=== PATIENT | female | born 1995 | race Caucasian/White ===

== ENCOUNTER 2022-03-04 14:54 | Inpatient (IN) | payer OTHER ==
[~2022-03-04] VITALS: Ht 160 cm; Wt 78.3 kg
[2022-03-04] VITALS (13 sets, daily range): BP systolic 123–141; BP diastolic 79–97
[2022-03-04] MEDS ORDERED: PRENTAB9 PO (15:11)
[2022-03-04] MEDS ORDERED: HOME MED LIST COMPLETE! XX SCH (15:25)
[2022-03-04] MEDS ORDERED: LIDOCAINE 1% MDV 20ML VIAL INFIL PRN (16:05)
[2022-03-04] MEDS ORDERED: miSOPROStol 50MCG 1/2 TABLET PO ONE (16:05)
[2022-03-04] MEDS ORDERED: OXYTOCIN DRIP 30 UNITS in IV 1 EA IV PRN (16:05)
[2022-03-04] MEDS ORDERED: TRANEXAMIC ACID INJection 1,000 MG in NS 100 ML IV PRN (16:05)
[2022-03-04 16:52] LABS: GC DNA AMPLIFICATION NEGATIVE (NEGATIVE)
[2022-03-04 17:19] LABS: HEMATOCRIT 27.1 % (36.0-47.0); HEMOGLOBIN 9.1 g/dl (12.0-15.5); MEAN CORPUSCULAR HEMOGLOBIN 28.2 pg (27.0-33.0); MEAN CORPUSCULAR HGB CONC 33.6 g/dl (32.0-36.5); MEAN CORPUSCULAR VOLUME 83.9 fl (80.0-96.0); PLATELET COUNT, AUTOMATED 316 10^3/uL (150-450); RED BLOOD COUNT 3.23 10^6/uL (4.00-5.40); WHITE BLOOD COUNT 11.1 10^3/uL (4.0-10.0)
[2022-03-04] MEDS ORDERED: PROMETHAZINE 25MG/ML 1ML VIAL IV ONE (19:25)
[2022-03-04] MEDS ORDERED: OXYTOCIN DRIP 30 UNITS in IV 1 EA IV SCH (19:25)
[2022-03-04] MEDS ORDERED: BUTORPHANOL 2 MG/ML INJ (J0595) IV ONE (19:25)
[2022-03-04] MEDS: LR 1,000 ML IV SCH ×2 (19:46→23:04)
[2022-03-05] VITALS (35 sets, daily range): BP systolic 112–151; BP diastolic 70–102
[2022-03-05] MEDS ORDERED: FENTANYL 2MCG/ML ROPIVACAINE 0.2% IN 0.9% NACL 100ML IVBAG As Ordered ONE (01:46)
[2022-03-05] MEDS ORDERED: NALOXONE INJ 0.4MG/1ML VIAL (J2310 PER 1MG) IV PRN ×3 (02:25→12:15)
[2022-03-05] MEDS ORDERED: EPIDURAL/PCA KEYS XX PRN (02:25)
[2022-03-05] MEDS ORDERED: FENTANYL/ROPIVACAINE/NACL BAG 100 ML EPIDURAL SCH (02:25)
[2022-03-05] MEDS ORDERED: ONDANSETRON 4MG/2ML VIAL IV PRN ×4 (02:25→12:15)
[2022-03-05] MEDS ORDERED: diphenhydrAMINE 50MG/ML VIAL (J1200) IV PRN ×2 (02:25→12:15)
[2022-03-05] MEDS ORDERED: LR 500 ML IV PRN (02:25)
[2022-03-05] MEDS ORDERED: ePHEDrine SULFATE 25 MG/5 ML(5MG/ML) SYRINGE IVP PRN (02:25)
[2022-03-05] MEDS: LR 1,000 ML IV SCH ×3 (06:28→20:15)
[2022-03-05] MEDS ORDERED: OXYTOCIN INJ 10 UNITS/ML VIAL (J2590) IM PRN (09:10)
[2022-03-05] MEDS ORDERED: CARBOPROST TROMETHAMINE 250 MCG/ML AMP IM PRN (09:10)
[2022-03-05] MEDS ORDERED: METHYLERGONOVINE MALEATE 0.2 MG/ML VIAL (J2210) IM PRN ×2 (09:10→12:15)
[2022-03-05] MEDS ORDERED: TRANEXAMIC ACID INJection 1,000 MG in NS 100 ML IV PRN (09:10)
[2022-03-05] MEDS ORDERED: OXYTOCIN DRIP 30 UNITS in IV 1 EA IV PRN (09:10)
[2022-03-05] MEDS ORDERED: OXYTOCIN INJ 10 UNITS/ML VIAL (J2590) IV PRN (09:10)
[2022-03-05] MEDS ORDERED: ceFAZolin SOD 2 GM in IV 1 EA IV ONE (09:55)
[2022-03-05] MEDS ORDERED: BICITRA 30ML SOLN UDC PO ONE (09:55)
[2022-03-05] MEDS ORDERED: AZITHROMYCIN INJ 500 MG, VIAL MATE ADAPTER 1 EACH in NS 250 ML IV ONE (09:55)
[2022-03-05] MEDS ORDERED: MORPHINE PRES-FREE INJ 10 MG/10 ML VIAL As Ordered ONE (10:19)
[2022-03-05] MEDS ORDERED: LIDOCAINE 2% W/EPINEPHRINE 20ML VIAL **PRES FREE As Ordered ONE (10:19)
[2022-03-05] MEDS ORDERED: OXYTOCIN 30 UNITS IN 0.9% NaCl 500ML IV BAG (J2590) As Ordered ONE ×2 (11:03→12:20)
[2022-03-05] MEDS ORDERED: fentaNYL 100 MCG/2 ML INJECTION As Ordered ONE ×2 (11:10→11:42)
[2022-03-05] MEDS ORDERED: diphenhydrAMINE 50MG/ML VIAL (J1200) As Ordered ONE (11:53)
[2022-03-05] MEDS ORDERED: ACETAMINOPHEN 500 MG TAB PO PRN (12:15)
[2022-03-05] MEDS ORDERED: KETOROLAC 30 MG/ML 1ML VIAL IV SCH (12:15)
[2022-03-05] MEDS ORDERED: MORPHINE 2 MG/ML 1ML VIAL IV PRN (12:15)
[2022-03-05] MEDS ORDERED: oxyCODONE 5MG TAB PO PRN ×3 (12:15)
[2022-03-05] MEDS ORDERED: RHOGAM 300 MCG (1500 IU) INJ (J2790) IM SCH (12:15)
[2022-03-05] MEDS ORDERED: METOCLOPRAMIDE INJ 10MG/2ML VIAL (J2765 PER 1) IV PRN (12:15)
[2022-03-05] MEDS ORDERED: OXYTOCIN DRIP 30 UNITS in IV 1 EA IV SCH (12:15)
[2022-03-05] MEDS ORDERED: ANUSOL HC CREAM 30GM TOP PRN (12:15)
[2022-03-05] MEDS ORDERED: fentaNYL 100 MCG/2 ML INJECTION IV PRN (12:15)
[2022-03-05] MEDS ORDERED: **NOTE PATIENT COMMENT** MISC XX SCH (12:15)
[2022-03-05] MEDS ORDERED: SIMETHICONE 80MG CHEW TAB PO PRN (12:15)
[2022-03-05] MEDS ORDERED: KETOROLAC 30 MG/ML 1ML VIAL As Ordered ONE (12:28)
[2022-03-05] MEDS: KETOROLAC 30 MG/ML 1ML VIAL IV SCH ×2 (12:33→18:19)
[2022-03-05] MEDS: SLF 3 ML SYR IV SCH ×2 (12:34→20:15)
[2022-03-05] MEDS ORDERED: IBUPROFEN 800 MG TAB PO SCH (15:00)
[2022-03-05] MEDS: FERROUS SULFATE 325MG TAB PO SCH (17:12)
[2022-03-05] MEDS: PRENATAL VITAMINS CHEWABLE TABLET PO SCH (17:13)
[2022-03-05] MEDS: DOCUSATE SODIUM 100MG CAPSULE PO SCH (20:19)
[2022-03-05] MEDS: ACETAMINOPHEN TAB 650MG DOSE (2X325MG) PO PRN (20:23)
[2022-03-06] MEDS: KETOROLAC 30 MG/ML 1ML VIAL IV SCH ×2 (01:10→07:29)
[2022-03-06 02:00] VITALS: BP 132/80
[2022-03-06 06:00] VITALS: BP 130/82
[2022-03-06] MEDS: SLF 3 ML SYR IV SCH (07:00)
[2022-03-06] MEDS: PRENATAL VITAMINS CHEWABLE TABLET PO SCH (07:40)
[2022-03-06] MEDS: DOCUSATE SODIUM 100MG CAPSULE PO SCH ×2 (07:40→21:09)
[2022-03-06] MEDS: FERROUS SULFATE 325MG TAB PO SCH (07:40)
[2022-03-06 07:45] LABS: HEMATOCRIT 21.8 % (36.0-47.0); MEAN CORPUSCULAR HEMOGLOBIN 28.1 pg (27.0-33.0); MEAN CORPUSCULAR HGB CONC 32.6 g/dl (32.0-36.5); MEAN CORPUSCULAR VOLUME 86.2 fl (80.0-96.0); PLATELET COUNT, AUTOMATED 237 10^3/uL (150-450); RED BLOOD COUNT 2.53 10^6/uL (4.00-5.40); WHITE BLOOD COUNT 14.5 10^3/uL (4.0-10.0)
[2022-03-06 08:11] LABS: HEMOGLOBIN 7.1 g/dl (12.0-15.5)
[2022-03-06 09:58] VITALS: BP 122/72
[2022-03-06] MEDS: ACETAMINOPHEN TAB 650MG DOSE (2X325MG) PO PRN (12:18)
[2022-03-06 14:00] VITALS: BP 138/84
[2022-03-06] MEDS ORDERED: IBUPROFEN 800 MG TAB PO SCH (14:15)
[2022-03-06] MEDS: IBUPROFEN 800 MG TAB PO SCH ×2 (15:37→23:00)
[2022-03-06 18:00] VITALS: BP 138/92
[2022-03-06 22:00] VITALS: BP 134/94
[2022-03-07] VITALS (9 sets, daily range): BP systolic 120–140; BP diastolic 80–93
[2022-03-07] MEDS ORDERED: COLA100C5 PO (04:52)
[2022-03-07] MEDS ORDERED: IBUP80TA PO (04:52)
[2022-03-07] MEDS ORDERED: ACET-683 PO (04:52)
[2022-03-07] MEDS: IBUPROFEN 800 MG TAB PO SCH ×2 (06:51→15:53)
[2022-03-07] MEDS: DOCUSATE SODIUM 100MG CAPSULE PO SCH (08:08)
[2022-03-07] MEDS: FERROUS SULFATE 325MG TAB PO SCH (08:08)
[2022-03-07] MEDS: PRENATAL VITAMINS CHEWABLE TABLET PO SCH (08:08)
[2022-03-07] MEDS ORDERED: MEASLES,MUMPS,RUBELLA VACCINE INJ (MMR-II) (90707) SC ONE (09:00)
== END 2022-03-07 16:45 | disposition home or self-care (01) | DRG 773 ==
LOC: M LDO 14:54 → M LDI 15:55 → M OBS 03-05 13:19
PROVIDERS: ADMIT Registered Nurse; ATTEND Obstetrics & Gynecology
PROC: 3E033VJ Introduction of Other Hormone into Peripheral Vein, Percutaneous Approach (ICD-10-PCS; 2022-03-04)
PROC: 10D00Z1 Extraction of Products of Conception, Low, Open Approach (ICD-10-PCS; principal; 2022-03-05 11:26)
PROC: 30233N1 Transfusion of Nonautologous Red Blood Cells into Peripheral Vein, Percutaneous Approach (ICD-10-PCS; 2022-03-07)
DX: O42.02 Full-term premature rupture of membranes, onset of labor within 24 hours of rupture (principal); D57.3 Sickle-cell trait; O76 Abnormality in fetal heart rate and rhythm complicating labor and delivery; O99.02 Anemia complicating childbirth; O69.81X0 Labor and delivery complicated by cord around neck, without compression, not applicable or unspecified; Z37.0 Single live birth; Z3A.40 40 weeks gestation of pregnancy

== ENCOUNTER 2024-11-09 12:56 | Emergency (ER) | payer OTHER ==
[~2024-11-09] VITALS: Ht 160 cm; Wt 68.1 kg
[~2024-11-09 12:56] MED LIST: ACET-683 PO; COLA100C5 PO; IBUP80TA PO; PRENTAB9 PO
[2024-11-09] MEDS ORDERED: CHOL125C6 PO (13:37)
[2024-11-09] MEDS ORDERED: WOMETAB PO (13:37)
[2024-11-09] MEDS ORDERED: VITRTAB4 PO (13:37)
[2024-11-09 15:59] LABS: BLOOD UREA NITROGEN 9 MG/DL (9-23); CALCIUM LEVEL 8.7 MG/DL (8.5-10.1); CARBON DIOXIDE LEVEL 26 MMOL/L (20-31); CHLORIDE LEVEL 108 MMOL/L (98-107); CREATININE FOR GFR 0.66 MG/DL (0.55-1.30); GLOMERULAR FILTRATION RATE > 60.0 (>60); GLUCOSE, FASTING 81 MG/DL (60-100); MAGNESIUM LEVEL 1.8 MG/DL (1.8-2.4); POTASSIUM SERUM 3.9 MMOL/L (3.5-5.1); SODIUM LEVEL 143 MMOL/L (136-145)
[2024-11-09] MEDS: KETOROLAC 60MG 2ML VIAL IM ONE (17:40)
[2024-11-09] MEDS: methocarbamoL 500 MG TAB PO ONE (17:40)
[2024-11-09] MEDS ORDERED: IBUP80TA PO (20:02)
[2024-11-09] MEDS ORDERED: METH-1164 PO (20:02)
[2024-11-09 20:06] VITALS: BP 120/83; TEMP 97.7; O2SAT 99
== END 2024-11-09 20:20 | disposition home or self-care (01) ==
LOC: M ED 12:56
DX: M62.838 Other muscle spasm (principal); G43.909 Migraine, unspecified, not intractable, without status migrainosus; F10.10 Alcohol abuse, uncomplicated; D57.3 Sickle-cell trait; Z97.5 Presence of (intrauterine) contraceptive device; Z79.899 Other long term (current) drug therapy; Z79.1 Long term (current) use of non-steroidal anti-inflammatories (NSAID)
CPT/HCPCS: 80048; 83735; 84484; 93005; 96372; 99284; J1885

== ENCOUNTER 2025-07-14 10:33 | Emergency (ER) | payer OTHER ==
[~2025-07-14] VITALS: Ht 160 cm; Wt 69.1 kg
[~2025-07-14 10:33] MED LIST changes: +CHOL125C6 PO; +METH-1164 PO; +VITRTAB4 PO; +WOMETAB PO
[2025-07-14] MEDS ORDERED: NORG1TAB38 PO (10:49)
[2025-07-14 12:29] LABS: BASO # 0.0 10^3/uL (0.0-0.2); BASO % 0.2 % (0.0-1.0); EOS # 0.2 10^3/uL (0.0-0.5); EOS % 1.8 % (0.0-3.0); LYMPH # 2.9 10^3/uL (1.5-5.0); LYMPH % 34.4 % (24.0-44.0); MONO # 0.4 10^3/uL (0.0-0.8); MONO % 4.9 % (2.0-8.0); NEUTROPHILS # 4.9 10^3/uL (1.5-8.5); NEUTROPHILS % 58.6 % (36.0-66.0); PLATELET COUNT, AUTOMATED 329 10^3/uL (150-450)
[2025-07-14 12:43] LABS: ERYTHROCYTE SEDIMENTATION RATE 18 mm/hr (0-20)
[2025-07-14 13:22] LABS: CK-MB VALUE MASS < 1.0 NG/ML (<3.6)
[2025-07-14 13:23] LABS: ALT/SGPT 85 U/L (7.0-40); AST/SGOT 67 U/L (<34); C REACTIVE PROTEIN QUANTITATIV < 0.50 MG/DL (<1.0); CALCIUM LEVEL 9.6 MG/DL (8.5-10.1); CARBON DIOXIDE LEVEL 24 MMOL/L (20-31); CHLORIDE LEVEL 106 MMOL/L (98-107); CREATININE FOR GFR 0.66 MG/DL (0.55-1.30); GLOMERULAR FILTRATION RATE > 90.0 (>60); MAGNESIUM LEVEL 1.6 MG/DL (1.8-2.4); POTASSIUM SERUM 3.6 MMOL/L (3.5-5.1); SODIUM LEVEL 142 MMOL/L (136-145)
[2025-07-14 13:24] LABS: CPK CREATINE PHOSPHOKINASE 49 U/L (34-145)
[2025-07-14 13:25] LABS: FREE T4 1.34 NG/DL (0.89-1.76)
[2025-07-14 13:38] LABS: HCG, SERUM QUALITATIVE NEGATIVE (NEGATIVE)
[2025-07-14] MEDS ORDERED: ISOVUE-370 76% 100 ML VIAL As Ordered ONE (13:59)
[2025-07-14] MEDS: diphenhydrAMINE 50 MG/ML VIAL IV STA (14:11)
[2025-07-14] MEDS: KETOROLAC 30 MG/ML 1 ML VIAL IV ONE (14:11)
[2025-07-14] MEDS ORDERED: REFR0.5D8 OU (14:21)
[2025-07-14] MEDS ORDERED: HOME MED LIST COMPLETE! XX SCH (14:25)
[2025-07-14] MEDS: MAG SULF 1GM/100ML (MAG RUN) 1 GM in IV 1 EA IV ONE (14:38)
[2025-07-14 15:30] VITALS: BP 138/102; O2SAT 97
[2025-07-14 15:42] VITALS: TEMP 98.8
== END 2025-07-14 15:50 | disposition home or self-care (01) ==
LOC: M ED 10:33
DX: E83.42 Hypomagnesemia (principal); G43.909 Migraine, unspecified, not intractable, without status migrainosus
CPT/HCPCS: 70450; 71045; 71275; 80053; 82550; 82553; 83605; 83735; 84439; 84443; 84484; 84703; 85025; 85652; 86140; 87486; 87581; 87633; 87798; 93005; 96365; 96375; 99284; J1200; J1885; J2765; J3475; Q9967

== ENCOUNTER → 2025-08-12 | Outpatient (CLI) | payer OTHER ==
[~2025-08-12] MED LIST changes: +ISOVUE-370 76% 100 ML VIAL As Ordered ONE; +NORG1TAB38 PO; +REFR0.5D8 OU
== END ==
LOC: M RAD 07:35
PROVIDERS: ATTEND Student in an Organized Health Care Education/Training Program
DX: I10 Essential (primary) hypertension (principal)